=== PATIENT | male | born 1990 | race Caucasian/White ===

== ENCOUNTER 2023-12-13 09:18 | Day surgery (SDC) | payer OTHER, SELFPAY ==
[2023-12-07 15:16] VITALS: BMI 32.0
--- NOTE | 2023-12-12 08:42 | PM.HP.1 ---
History of Present Illness History of Present Illness Date Patient Seen: 12/13/23 Time Patient Seen: 09:50 Chief complaint: SDC Narrative: 33-year-old man here for elective laparoscopic right inguinal hernia repair. No interval change in health. [facility], [facility] Medical History HTN (hypertension) Smoking Healthy adult Surgical History History of appendectomy (2005) Family History Father Diabetes mellitus Social History marital status: household members: spouse and children lives independently: Yes occupational status: employed Smoking Status: Current every day smoker alcohol intake: current substance use type: does not use Meds Home Medications and Allergies Home Medications Medication Instructions Recorded Confirmed Type metoprolol tartrate 25 mg tablet 25 mg PO BID 12/13/23 History Allergies Allergy/AdvReac Type Severity Reaction Status Date / Time Sulfa (Sulfonamide Allergy Verified 11/02/23 13:18 Antibiotics) Exam Narrative Exam Narrative: General adult man alert oriented no acute distress Chest nonlabored respiration Extremities warm well perfused Abdomen right inguinal hernia site marked with my initials Assessment & Plan Assessment & Plan narrative: 33-year-old man here for elective laparoscopic right hernia repair. Overview of the operation including its risks benefits and alternatives were again reviewed. Following this he provided his written and verbal consent to proceed. Time-Based Coding :: [TOTAL MINUTES] spent with patient and on the chart (including review of chart, obtaining history, exam, reviewing outside data, placing orders, documenting exam and treatment plan, and counseling patient) on [DATE].
[2023-12-13] VITALS (8 sets, daily range): BP systolic 116–151; BP diastolic 79–95; PULSE 58–100; RESP 11–16; TEMP 36.2–36.8; O2SAT 94–100; BMI 32.0
[2023-12-13] MEDS: ACETAMINOPHEN 325 MG TABLET 975 MG PO (09:34)
[2023-12-13] MEDS: LACTATED RINGERS 1,000 ML 42 ML IV (09:35)
[2023-12-13] MEDS: CEFAZOLIN 2 GM/100 ML PREMIX 100 ML IV (10:10)
--- NOTE | 2023-12-13 10:25 | SUR.OPER ---
Supine on padded OR bed, head on pillow, arms padded and tucked at sides, legs uncrossed, safety belt at thigh, tape over blanket over lower legs .
[2023-12-13] MEDS: BUPIVACAINE 0.25% (PF) VIAL 30 ML INJ (10:32)
[2023-12-13] MEDS: ONDANSETRON 4 MG/2 ML INJ IV (11:35)
[2023-12-13] MEDS: hydrOXYzine 50 MG/ML INJ 25 MG IM (11:35)
--- NOTE | 2023-12-13 12:10 | P.OP_ITS ---
Operative Date/Time/Diagnoses Date of procedure: 12/13/23 Time of procedure: 12:10 Pre-op diagnosis: Right inguinal hernia Post-op diagnosis: same Procedure & Clinicians Procedure: Laparoscopic repair of right inguinal hernia Same procedure as scheduled: Yes Indications: Symptomatic reducible right inguinal hernia Surgeon: Marvin Easley Fiberglass Dowel Drawing Operator: Max Leblanc Anesthesia Type: General Operative Notes Findings: Small direct defect. Cord lipoma Specimen(s): none sent Estimated Blood Loss (mL): 50 Procedure in detail: The patient was brought to the operating room and placed supine on the table. Bilateral sequential compression devices were applied. General anesthesia was induced and they were intubated with an endotracheal tube. A lafleru cath was placed in sterile fashion. They received 2 g of Ancef prior to skin incision. They were prepped and draped in sterile fashion. A time out was performed to ensure the correct patient, procedure and necessary equipment within the operating room. The skin was infiltrated with 0.25% bupivicaine. A 1 cm supra umbilical midline incision was made. The fascia was sharply incised and the abdomen entered traumatically. A 10mm balloon port was placed and pneumoperitoneum was established at 15mm Hg. Inspection of the abdomen demonstrated no evidence of injury upon entry. Two 5 mm ports were then placed under direct visualization in the right and left lower quadrant lateral to the rectus muscle. Small right direct hernia was observed. The peritoneum 4 cm superior to the deep inguinal ring between the medial umbilical ligament and the anterior superior iliac spine was incised. The medial preperitoneal dissection was carried out into the space of Retzius bluntly, the bladder was swept inferiorly, the pubis and Otto's ligament were identified. Next attention was turned towards the lateral aspect of the peritoneal flap. The preperitoneal fat with the testicular vessels was carefully dissected off the inferior peritoneal flap. The cord was carefully inspected there was a small cord lipoma which was dissected off of the spermatic cord. The attachements to the direct hernia sac were divided and the direct defect was reduced. A large Bard 3D Max mesh was then placed into the abdomen and positioned such that the myopectineal orifice was completely covered with good overlap on all sides. The peritoneal flap was then repositioned back to its original position and a running V lock suture was used to close the peritoneum such that no bowel could herniate into the preperitoneal space. The area was examined for hemostasis. The 5mm trocars were removed under direct visualization and pneumoperitoneum was deflated through the umbilical trocar, The fascia at the umbilicus was closed with 0-Vicryl in figure of 8 fashion, skin closed with 4-0 Monocyl followed by Dermabond. The sponge and instrument count at the end of the case was correct. Both testicles were entirely within the scrotum at the end of the case. The patient emerged from anesthsia was extubated and transferred to recovery in stable condition. Complications: none Post-operative Condition: stable Disposition: same day surgery
== END 2023-12-13 13:03 | disposition home or self-care (01) ==
PROVIDERS: PCP Preventive Medicine Aerospace Medicine; Referring Provider Surgery; Visit Provider Surgery
PROC: 0YQ54ZZ Repair Right Inguinal Region, Percutaneous Endoscopic Approach (ICD-10-PCS; CPT 49650; principal; 2023-12-13 10:45)
DX: K40.90 Unilateral inguinal hernia, without obstruction or gangrene, not specified as recurrent (principal)
CPT/HCPCS: 49650; J0690; J1100; J1170; J2250; J2405; J2704; J3410

== ENCOUNTER → 2024-03-13 06:50 | Outpatient (CLI) | payer OTHER, SELFPAY ==
--- NOTE | 2024-03-13 06:50 | DI.US.S_ITS ---
PROCEDURE: US SCROTUM INDICATIONS: RT TESTICULAR SWELLING SINCE RT HERNIA REPAIR 2 MONTHS AGO TECHNIQUE: Real-time scanning was performed of the scrotum and testicles, with image documentation. Color and pulse Doppler interrogation was performed of both testicles. COMPARISON: None. FINDINGS: Right: Testicle is normal in size at 4.8 x 3.3 x 2.9 cm, and homogenous in echotexture. Epididymis is normal in overall size and morphology. Small to moderate-sized simple hydrocele. No septations or solid components. No varicocele. Overlying scrotal skin is normal in thickness. Left: Testicle is normal in size at 4.4 x 2.8 x 2.4 cm, and homogeneous in echotexture. Epididymis is normal in overall size and morphology. Trace, probably physiologic left-sided hydrocele. No varicocele. Overlying scrotal skin is normal in thickness. Doppler: Color and pulse Doppler demonstrate normal and symmetric arterial flow in both testicles. IMPRESSION: Small to moderate size right, and trace, likely physiologic left, bilateral hydroceles. Hydroceles appear simple. No evidence of resolving hematoma. Otherwise normal scrotal ultrasound. Dictated by: Lolis Omer M.D. on 03/13/2024 at 22:01 Approved by: Lolis Omer M.D. on 03/13/2024 at 22:03
== END ==
PROVIDERS: PCP Preventive Medicine Aerospace Medicine; Referring Provider Surgery; Visit Provider Surgery
DX: N50.819 Testicular pain, unspecified (principal); N43.3 Hydrocele, unspecified
CPT/HCPCS: 76870